=== PATIENT | male | born 1970 | race Caucasian/White ===

== ENCOUNTER 2017-02-05 13:12 | Emergency (ER) | payer SELFPAY ==
[2017-02-05 13:18] VITALS: BMI 29.5
--- NOTE | 2017-02-05 14:20 | DR.GENAD ---
HPI - PCP Primary Care Physician: MEGAN - HPI Comment HPI Comment: PAIN ON DEFECATION. NO FEVER. SIMILAR EPISODE PREVIOUSLY ASSOCIATED WITH ABSCESS IN TECTAL AREA. - Complaint/Symptoms Chief Complaint Doctors Comments: LOWER ABDOMINAL PAIN, RECTAL PAIN AND GI BLEEDING FOR SEVERAL PAIN. Chief Complaint:: PT. C/O RECTAL PAIN AND LOWER ABDOMINAL AND LOWER BACK PAIN. PT. HAD THE RECTAL FISSURE REPAIRED [address] BEAR. PT. STATES HE HAS BEEN HAVING RECTAL BLEEDING. - Nurses notes reviewed Nurses Notes Review: Yes - Source History Provided: Patient - Mode of Arrival Mode of Arrival: Ambulatory - Timing Onset of Chief Complaint: 01/06/17 Came on: Suddenly - Duration Duration: Constant Duration: Days - Severity Severity: Moderate PMH - PMH Past Medical History: Yes Past Medical History: Hypertension, Seizures Past Surgical History: Yes Surgical History: Ortho Surgery, Other Past Surgical History Comment: BRAIN SURGERY X 2, ANAL FISSURE REPAIR - Family History History of Family Medical Conditions: No - Social History Does patient currently use any type of tobacco product: No Have you used tobacco products in the last 12 months: No Type of Tobacco Use: None Does any household member use tobacco: No Alcohol Use: None Do you use any recreational Drugs:: No Lives With: Spouse Lives Where: Home - infectious screening In the last 2 months have you had wt loss of >10#?: NO Have you had fever, night sweats or hemotysis?: No Have you traveled outside the country in the last 6 months?: No Isolation: Standard ROS - Review of Systems Constitutional: No Symptoms Reported, Weakness, Fatigue. negative: Chills, Fever Eyes: No Symptoms Reported ENTM: No Symptoms Reported. negative: Ear Discharge, Nose Discharge, Nose Congestion, Throat Pain Respiratoy: No Symptoms Reported Cardiovascular: No Symptoms Reported Gastrointestinal/Abdominal: Abdominal Pain, Nausea, Other (RECTAL PAIN) Genitourinary: negative: Dysuria, Frequency, Hematuria Neurological: No Symptoms Reported Musculoskeletal: No Symptoms Reported Integumentary: No Symptoms Reported Hematologic/Lymphatic: No Symptoms Reported Endocrine: No Symptoms Reported All Other Systems: Reviewed and Negative PE - Vital Signs Vitals: Temperature 97.0 F Pulse Rate 76 Respiratory Rate 18 Blood Pressure [Left Arm] 135/85 Blood Pressure 182/115 O2 Sat by Pulse Oximetry 97 - General Limitations: No Limitations General Appearance: Alert - Head Head Exam: Normal Inspection - Eyes Eye exam: Normal Appearance - ENT ENT Exam: Normal External Ear Exam External Ear Exam: Normal External Inspection TM/Canal Exam: Bilateral Normal Nose Exam: Normal Nose Exam Mouth Exam: Normal Inspection Throat Exam: Normal Inspection - Neck Neck Exam: Normal Inspection - Chest Chest Inspection: Symmetric Chest Wall Rise - Respiratory Respiratory Exam: Normal Lung Sounds Bilat Respiratory Exam: Bilateral Clear to Auscultation, Lower Clear to Auscultation - Cardiovascular Cardiovascular Exam: Regular Rate, Normal Rhythm, Normal Heart Sounds - Abdominal Exam Abdominal Exam: Normal Bowel Sounds, Soft, Tenderness Abdominal Tenderness: RLQ, LLQ, Suprapubic, Moderate, Other (PERIRECTAL REDNESS. NO EXTERNAL HEMORRHIOD OR ABSCESS.) - Extremities Extremities Exam: Normal Inspection - Back Back Exam: Normal Inspection - Neurologic Neurological Exam: Alert, Oriented X3 - Psychiatric Psychiatric Exam: Normal Affect, Normal Mood - Skin Skin Exam: Normal Color MDM - Differential Diagnosis Differential Diagnosis: GI BLEEDING, RECTAL PAIN, INTERNAL HEMORRHIOD, DIVERTICULITIS, COLLITIS Course - Treatment Treatment: REPORT DISCUSS WITH PATIENT. MED FOR PAIN IN ED. - Reevaluation 1st: Improved - Consultation Consultation Comments: DISCUSS PATIENT WITH DR. BEAR. - Education/Counseling Education/Counseling: Patient, Education Educated On: Diagnosis, Needs for Follow Up ROR - Labs Reviewed Laboratory Results Reviewed?: Yes Result Diagrams: 02/05/17 14:30 02/05/17 14:30 Laboratory: WBC 4.8 X10^3/uL (3.6-10.0) 02/05/17 14:30 RBC 5.61 X10^6/uL (4.7-6.0) 02/05/17 14:30 Hgb 16.7 g/dL (13.5-18.0) 02/05/17 14:30 Hct 47.9 % (42.0-54.0) 02/05/17 14:30 MCV 85.4 fL (80.0-100.0) 02/05/17 14:30 MCH 29.7 pg (27.0-34.0) 02/05/17 14:30 MCHC 34.8 g/dL (33.0-35.0) 02/05/17 14:30 RDW 13.7 % (11.6-16.5) 02/05/17 14:30 Plt Count 208 X10^3/uL (150.0-450.0) 02/05/17 14:30 MPV 8.5 fL (7.4-11.0) 02/05/17 14:30 Neut % 43.2 % (42.0-75.0) 02/05/17 14:30 Lymph % 45.6 % (21.0-51.0) 02/05/17 14:30 [place] % 7.3 % (0.0-13.0) 02/05/17 14:30 Eos % 3.2 % (0.9-2.9) H 02/05/17 14:30 Baso % 0.7 % (0.2-1.0) 02/05/17 14:30 Neut # 2.1 x10^3/uL (2.2-4.8) L 02/05/17 14:30 Lymph # 2.2 X10^3/uL (1.3-2.9) 02/05/17 14:30 [place] # 0.4 x10^3/uL (0.3-0.8) 02/05/17 14:30 Eos # 0.2 x10^3/uL (0.0-0.2) 02/05/17 14:30 Baso # 0.0 X10^3/uL (0.0-0.1) 02/05/17 14:30 Absolute Nucleated RBC 0.4 /100WBC 02/05/17 14:30 INR Target Range - 02/05/17 14:30 INR 1.03 (0.8-1.3) 02/05/17 14:30 PTT 27.0 SECONDS (22.9-36.5) 02/05/17 14:30 PTT Comment - 02/05/17 14:30 Sodium 142 mmol/L (136-145) 02/05/17 14:30 Corrected Sodium TNP 02/05/17 14:30 Potassium 3.8 mmol/L (3.5-5.1) 02/05/17 14:30 Chloride 106 mmol/L (98-107) 02/05/17 14:30 Carbon Dioxide 24.9 mmol/L (21-32) 02/05/17 14:30 BUN 11 mg/dL (7-18) 02/05/17 14:30 Creatinine 1.11 mg/dL (0.70-1.30) 02/05/17 14:30 Est GFR (MDRD) Af Amer > 60 (>60) 02/05/17 14:30 Est GFR (MDRD) Non-Af > 60 (>60) 02/05/17 14:30 Glucose 86 mg/dL (65-99) 02/05/17 14:30 Calcium 8.7 mg/dL (8.5-10.1) 02/05/17 14:30 Corrected Calcium TNP 02/05/17 14:30 Total Bilirubin 0.40 mg/dL (0.2-1.0) 02/05/17 14:30 AST 24 Units/L (15-37) 02/05/17 14:30 ALT 51 Units/L (12-78) 02/05/17 14:30 Alkaline Phosphatase 91 Units/L (46-116) 02/05/17 14:30 Total Protein 8.1 g/dL (6.4-8.2) 02/05/17 14:30 Albumin 4.3 g/dL (3.4-5.0) 02/05/17 14:30 Globulin 3.8 g/dL (2.5-4.5) 02/05/17 14:30 Albumin/Globulin Ratio 1.1 Ratio (1.1-2.1) 02/05/17 14:30 Specimen Type Clean catch urine 02/05/17 14:37 Urine Color Yellow (YELLOW) 02/05/17 14:37 Urine Appearance Clear (CLEAR) 02/05/17 14:37 Urine pH 6.0 (5.0 - 8.0) 02/05/17 14:37 Ur Specific [place] 1.015 (1.000-1.030) 02/05/17 14:37 Urine Protein Negative (NEGATIVE) 02/05/17 14:37 Urine Glucose (UA) Negative (NEGATIVE) 02/05/17 14:37 Urine Ketones Negative (NEGATIVE) 02/05/17 14:37 Urine Occult Blood Negative (NEGATIVE) 02/05/17 14:37 Urine Nitrite Negative (NEGATIVE) 02/05/17 14:37 Urine Bilirubin Negative (NEGATIVE) 02/05/17 14:37 Urine Urobilinogen Normal (NORMAL) 02/05/17 14:37 Ur Leukocyte Esterase Negative (NEGATIVE) 02/05/17 14:37 Urine RBC 0-2 /HPF (NEGATIVE) 02/05/17 14:37 Urine WBC 0-2 /HPF (NEGATIVE) 02/05/17 14:37 Ur Squamous Epith Cells Negative /HPF (NEGATIVE) 02/05/17 14:37 Urine Bacteria Negative /HPF (NEGATIVE) 02/05/17 14:37 Ur Culture Indicated? No/not indicated 02/05/17 14:37 - XRAY XRAY Findings: REPORT DISCUSS WITH PATIENT. - Diagnosis Discharge Problem: Diverticulitis GI bleeding Qualifiers: GI bleed type/associated pathology: unspecified gastrointestinal hemorrhage type Qualified Code(s): K92.2 - Gastrointestinal hemorrhage, unspecified - Discharge Plan Disposition: 01 HOME, SELF-CARE Condition: Stable Prescriptions: Ciprofloxacin HCl [CIPRO 500 MG TAB *] 500 mg PO Q12H #20 tab Metronidazole [Flagyl Tab 500 mg] 500 mg PO TID #21 tab Tramadol HCl 50 mg PO Q8H #15 tablet - Follow ups/Referrals Follow ups/Referrals: CATHERINE GUZMAN [Primary Care Provider] - 1 day - Instructions Instructions: Diverticulitis, [id number], Gastrointestinal Bleeding, Easy-to- Read Additional Instructions: RETURN TO ED IF WORSE.
[2017-02-05 14:40] LABS: EOSINOPHILS % (AUTO) 3.2 % (0.9-2.9)
[2017-02-05 14:53] LABS: ALANINE AMINOTRANSFERASE 51 Units/L (12-78); ALBUMIN 4.3 g/dL (3.4-5.0); ALKALINE PHOSPHATASE 91 Units/L (46-116); ASPARTATE AMINO TRANSFERASE 24 Units/L (15-37); BLOOD UREA NITROGEN 11 mg/dL (7-18); CALCIUM 8.7 mg/dL (8.5-10.1); CARBON DIOXIDE 24.9 mmol/L (21-32); CHLORIDE 106 mmol/L (98-107); CREATININE 1.11 mg/dL (0.70-1.30); SODIUM 142 mmol/L (136-145); TOTAL PROTEIN 8.1 g/dL (6.4-8.2); eGFR BLACK RACES > 60 (>60); eGFR NON BLACK RACES > 60 (>60)
[2017-02-05 14:53] LABS: BILIRUBIN,URINE NEGATIVE (NEGATIVE); BLOOD/HEMOGLOBIN,URINE NEGATIVE (NEGATIVE); GLUCOSE, URINE NEGATIVE (NEGATIVE); KETONES,URINE NEGATIVE (NEGATIVE); LEUKOCYTE ESTERASE ,URINE NEGATIVE (NEGATIVE); NITRITES,URINE NEGATIVE (NEGATIVE); PROTEIN,URINE NEGATIVE (NEGATIVE); UROBILINOGEN,URINE NORMAL (NORMAL)
[2017-02-05 15:00] LABS: APPEARANCE,URINE CLEAR (CLEAR); BACTERIA,URINE NEGATIVE /HPF (NEGATIVE); COLOR,URINE YELLOW (YELLOW); RBC,URINE 0-2 /HPF (NEGATIVE); SQUAMOUS EPITHELIAL CELL,UR NEGATIVE /HPF (NEGATIVE)
[2017-02-05 15:11] LABS: BASOPHILS % (AUTO) 0.7 % (0.2-1.0); EOSINOPHILS # (AUTO) 0.2 x10^3/uL (0.0-0.2); HEMATOCRIT 47.9 % (42.0-54.0); HEMOGLOBIN 16.7 g/dL (13.5-18.0); LYMPHOCYTES # (AUTO) 2.2 X10^3/uL (1.3-2.9); LYMPHOCYTES % (AUTO) 45.6 % (21.0-51.0); MEAN CORPUSCULAR HEMOGLOBIN 29.7 pg (27.0-34.0); MEAN CORPUSCULAR HGB CONC 34.8 g/dL (33.0-35.0); MEAN CORPUSCULAR VOLUME 85.4 fL (80.0-100.0); MEAN PLATELET VOLUME 8.5 fL (7.4-11.0); MONOCYTES # (AUTO) 0.4 x10^3/uL (0.3-0.8); MONOCYTES % (AUTO) 7.3 % (0.0-13.0); NEUTROPHILS # (AUTO) 2.1 x10^3/uL (2.2-4.8); NEUTROPHILS % (AUTO) 43.2 % (42.0-75.0); PLATELET COUNT 208 X10^3/uL (150.0-450.0); RED BLOOD COUNT 5.61 X10^6/uL (4.7-6.0); RED CELL DISTRIBUTION WIDTH 13.7 % (11.6-16.5); WHITE BLOOD COUNT 4.8 X10^3/uL (3.6-10.0)
[2017-02-05 16:20] VITALS: BP 135/85
[2017-02-05] MEDS ORDERED: ZOFRAN INJ 4 MG VIAL IM ONE (16:36)
[2017-02-05] MEDS ORDERED: MORPHINE SULFATE INJ 4 MG IM ONE (16:36)
[2017-02-05] MEDS ORDERED: LEVAQUIN TAB 750 MG PO ONE (16:38)
--- NOTE | 2017-02-05 16:52 | CT ---
CT abdomen and pelvis without contrast Indication: Generalized abdominal pain, GI bleed Technique: Helical CT images of the abdomen and pelvis were obtained without IV contrast. Reformatted images in the coronal and sagittal planes were also generated for review. Comparison: None Findings: Lung bases are clear. No aggressive osseous lesions are identified. Within the limits of a noncontrast exam, the liver, gallbladder, spleen, pancreas and adrenals are un remarkable. Both kidneys and visualized ureters are normal without radiopaque stones or hydroureteron ephrosis. There is very mild diverticulosis of the sigmoid colon without evidence of acute inflammation. The ap pendix is normal. No bowel obstruction seen. The IVC, abdominal aorta, urinary bladder and prostate a re normal. No free air, free fluid or lymphadenopathy is identified. Impression: No acute abnormality to explain patient's symptoms. Mild diverticulosis of the sigmoid colon without evidence of acute diverticulitis. Reported By:
[2017-02-05] MEDS ORDERED: LEVAQUIN TAB 250 MG ONE (17:19)
[2017-02-05] MEDS ORDERED: ZOFRAN INJ 4 MG VIAL ONE (17:19)
[2017-02-05] MEDS ORDERED: LEVAQUIN TAB 500 MG ONE (17:19)
[2017-02-05] MEDS ORDERED: MORPHINE SULFATE INJ 4 MG ONE (17:20)
== END 2017-02-05 17:37 | disposition home or self-care (01) ==
LOC: ER 13:36
DX: K57.92 Diverticulitis of intestine, part unspecified, without perforation or abscess without bleeding (principal); K92.2 Gastrointestinal hemorrhage, unspecified
CPT/HCPCS: 36415; 74176; 80053; 81001; 85025; 85610; 85730; 99283; 99284; J2270; J2405

== ENCOUNTER 2017-02-12 11:48 | Emergency (ER) | payer SELFPAY ==
[2017-02-12 11:52] VITALS: BP 178/100; BMI 30.2
--- NOTE | 2017-02-12 13:32 | DR.GENAD ---
HPI - PCP Primary Care Physician: NFD - Complaint/Symptoms Chief Complaint Doctors Comments: Patient was diagnosed with diverticulosis on 02/05/17; he presents today with complaint of stomach burning. He denies fever, vomiting or diarrhea. He reports that he had one year ago and has had intermittent rectal bleed. He admist to a rectal fsrtula for three years. Chief Complaint:: PATIENT STATED THAT HE IS HAVING ALOT OF PAIN IN THE ABD. STARTED ABOUT 3-4 DAYS AGO. - Source History Provided: Patient - Mode of Arrival Mode of Arrival: Ambulatory - Timing Onset of Chief Complaint: 02/08/17 PMH - PMH Past Medical History: Yes Past Medical History: Hypertension, Seizures Past Surgical History: Yes Surgical History: Ortho Surgery, Other - Family History History of Family Medical Conditions: No - Social History Does patient currently use any type of tobacco product: No Have you used tobacco products in the last 12 months: No Type of Tobacco Use: None Does any household member use tobacco: No Alcohol Use: None Do you use any recreational Drugs:: No Lives With: Family Lives Where: Home - infectious screening In the last 2 months have you had wt loss of >10#?: NO Have you had fever, night sweats or hemotysis?: No Have you traveled outside the country in the last 6 months?: No Isolation: Standard ROS - Review of Systems Constitutional: No Symptoms Reported Eyes: No Symptoms Reported ENTM: No Symptoms Reported Respiratoy: No Symptoms Reported Cardiovascular: No Symptoms Reported Gastrointestinal/Abdominal: No Symptoms Reported Genitourinary: No Symptoms Reported Neurological: No Symptoms Reported Musculoskeletal: No Symptoms Reported Integumentary: No Symptoms Reported PE - Vital Signs Vitals: Temperature 97.7 F Pulse Rate 82 Respiratory Rate 20 Blood Pressure [Left Arm] 135/85 Blood Pressure 178/100 O2 Sat by Pulse Oximetry 97 - General Limitations: No Limitations General Appearance: Alert, In No Apparent Distress, Appears Intoxicated - Head Head Exam: Normal Inspection, Atraumatic - Eyes Eye exam: Normal Appearance, PERRL, EOMI - ENT ENT Exam: Normal Exam External Ear Exam: Normal External Inspection TM/Canal Exam: Bilateral Normal Nose Exam: Normal Nose Exam Mouth Exam: Normal Inspection Throat Exam: Normal Inspection - Neck Neck Exam: Normal Inspection, Full ROM - Chest Chest Inspection: Normal Inspection - Respiratory Respiratory Exam: Normal Lung Sounds Bilat Respiratory Exam: Bilateral Clear to Auscultation - Cardiovascular Cardiovascular Exam: Regular Rate, Normal Rhythm - Abdominal Exam Abdominal Exam: Normal Inspection, Normal Bowel Sounds - Extremities Extremities Exam: Normal Inspection, Full ROM ROR - Labs Reviewed Laboratory Results Reviewed?: Yes (ESR 3.7) Result Diagrams: 02/12/17 14:33 Laboratory: WBC 4.8 X10^3/uL (3.6-10.0) 02/12/17 14:33 RBC 5.18 X10^6/uL (4.7-6.0) 02/12/17 14:33 Hgb 15.4 g/dL (13.5-18.0) 02/12/17 14:33 Hct 43.9 % (42.0-54.0) 02/12/17 14:33 MCV 84.7 fL (80.0-100.0) 02/12/17 14:33 MCH 29.6 pg (27.0-34.0) 02/12/17 14:33 MCHC 35.0 g/dL (33.0-35.0) 02/12/17 14:33 RDW 13.9 % (11.6-16.5) 02/12/17 14:33 Plt Count 181 X10^3/uL (150.0-450.0) 02/12/17 14:33 MPV 8.3 fL (7.4-11.0) 02/12/17 14:33 Neut % 47.8 % (42.0-75.0) 02/12/17 14:33 Lymph % 38.8 % (21.0-51.0) 02/12/17 14:33 [place] % 7.0 % (0.0-13.0) 02/12/17 14:33 Eos % 5.4 % (0.9-2.9) H 02/12/17 14:33 Baso % 1.0 % (0.2-1.0) 02/12/17 14:33 Neut # 2.3 x10^3/uL (2.2-4.8) 02/12/17 14:33 Lymph # 1.9 X10^3/uL (1.3-2.9) 02/12/17 14:33 [place] # 0.3 x10^3/uL (0.3-0.8) 02/12/17 14:33 Eos # 0.3 x10^3/uL (0.0-0.2) H 02/12/17 14:33 Baso # 0.0 X10^3/uL (0.0-0.1) 02/12/17 14:33 Absolute Nucleated RBC 0.1 /100WBC 02/12/17 14:33 C-Reactive Protein 3.70 mg/L (0-3.0) H 02/12/17 14:33 - Diagnosis Discharge Problem: Eosinophil count raised Diverticulosis Qualifiers: Diverticulosis site: diverticulosis of small and large intestine Diverticulosis bleeding: diverticulosis without bleeding Qualified Code(s): K57.50 - Diverticulosis of both small and large intestine without perforation or abscess without bleeding - Discharge Plan Condition: Stable - Follow ups/Referrals Follow ups/Referrals: NFD,None [Primary Care Provider] - 3 days - Instructions
[2017-02-12] MEDS ORDERED: BENTYL I.M. INJ 10 MG IM ONE ×2 (13:48→14:03)
[2017-02-12 14:48] LABS: MEAN CORPUSCULAR VOLUME 84.7 fL (80.0-100.0); MONOCYTES # (AUTO) 0.3 x10^3/uL (0.3-0.8); WHITE BLOOD COUNT 4.8 X10^3/uL (3.6-10.0)
[2017-02-12 15:01] LABS: EOSINOPHILS # (AUTO) 0.3 x10^3/uL (0.0-0.2); EOSINOPHILS % (AUTO) 5.4 % (0.9-2.9); HEMATOCRIT 43.9 % (42.0-54.0); HEMOGLOBIN 15.4 g/dL (13.5-18.0); LYMPHOCYTES # (AUTO) 1.9 X10^3/uL (1.3-2.9); LYMPHOCYTES % (AUTO) 38.8 % (21.0-51.0); MEAN CORPUSCULAR HEMOGLOBIN 29.6 pg (27.0-34.0); MEAN PLATELET VOLUME 8.3 fL (7.4-11.0); NEUTROPHILS # (AUTO) 2.3 x10^3/uL (2.2-4.8); NEUTROPHILS % (AUTO) 47.8 % (42.0-75.0); PLATELET COUNT 181 X10^3/uL (150.0-450.0); RED BLOOD COUNT 5.18 X10^6/uL (4.7-6.0); RED CELL DISTRIBUTION WIDTH 13.9 % (11.6-16.5)
--- NOTE | 2017-02-12 15:31 | RAD ---
Examination: KUB History: Fistula, diverticulosis Comparison reference: CT abdomen, 02/05/2017. Findings: Normal intestinal gas pattern. There is no evidence for mass formation, free fluid, unusual air collection or calcification. Impression: KUB within normal limits. Reported By:
== END 2017-02-12 15:30 | disposition home or self-care (01) ==
LOC: ER 12:04
DX: K57.50 Diverticulosis of both small and large intestine without perforation or abscess without bleeding (principal); D72.1 Eosinophilia
CPT/HCPCS: 36415; 74000; 85025; 86140; 96372; 99282; J0500